=== PATIENT | female | born 1985 | race Caucasian/White ===

== ENCOUNTER 2016-11-27 10:30 | Inpatient (IN) | payer OTHER ==
[2016-11-27 10:59] VITALS: BMI 25.7
--- NOTE | 2016-11-27 12:47 | HP ---
COWS - Scale Resting Pulse: 1= IA 81-100 Sweatin= Chills/Flushing Restless Observation: 3= Extraneous Movement Pupil Size: 2= Moderately Dilated Bone or Joint Aches: 4=Acute Joint/Muscle Pain Runny Nose/ Eye Tearin= Runny Nose/Eyes GI Upset > 30mins: 1= Stomach Cramp Tremor Observation: 2= Slight Tremor Visible Yawning Observation: 2= >3x During Session Anxiety or Irritability: 2=Irritable/Anxious Goose Flesh Skin: 3=Piloerection COWS Score: 23 CIWA Score - CIWA Score Nausea/Vomitin-Int. Nausea w/Dry Heave Muscle Tremors: 4-Moderate,w/Arms Extend Anxiety: 4-Mod. Anxious/Guarded Agitation: 4-Moderately Restless Paroxysmal Sweats: 1-Minimal Palms Moist Orientation: 0-Oriented Tacttile Disturbances: 3-Moderate Itch/Numb/Burn Auditory Disturbances: 0-None Visual Disturbances: 0-None Headache: 0-None Present CIWA-Ar Total Score: 20 Admission [facility] Chief Complaint: DETOX [place] FOR HEROIN AND ALCOHOL DEPENDENCE Allergies/Adverse Reactions: Allergies Allergy/AdvReac Type Severity Reaction Status Date / Time Penicillins Allergy Severe Verified 11/27/16 11:49 History of Present Illness: 31 Y/O FEMALE WITH A HX OF HEROIN AND ALCOHOL DEPENDENCE SEEKING DETOX [place]. Exam Limitations: No Limitations - Ebola screening Have you traveled outside of the country in the last 21 days: No Have you had contact with anyone from an Ebola affected area: No Have you been sick,other than usual withdrawal symptoms: No - Review of Systems Constitutional: Chills, Loss of Appetite, Night Sweats, Changes in sleep EENT: reports: Blurred Vision, Tearing, Nose Congestion, Dental Problems (IN POOR REPAIR) Respiratory: reports: No Symptoms reported Cardiac: reports: Lightheadedness GI: reports: Constipated, Diarrhea, Nausea, Poor Appetite, Poor Fluid Intake, Vomiting, Abdominal cramping : reports: No Symptoms Reported Musculoskeletal: reports: Back Pain, Joint Pain, Muscle Pain Integumentary: reports: Bruising (IVDU TRACKS ON HANDS) Neuro: reports: Headache (HX MIGRAINES), Tremors, Dizziness Endocrine: reports: No Symptoms Reported Hematology: reports: No Symptoms Reported Psychiatric: reports: Orientated x3, Anxious Other Systems: Reviewed and Negative Patient History - Patient Medical History Hx Anemia: No Hx Asthma: No Hx Chronic Obstructive Pulmonary Disease (COPD): No Hx Cardiac Disorders: No Hx Hypertension: No Hx Hypercholesterolemia: No HX Cerebrovascular Accident: No Hx Seizures: No Hx Diabetes: No Hx Gastrointestinal Disorders: No Hx Genitourinary Disorders: No Hx Sexually Transmitted Disorders: No Hx Renal Disease (ESRD): No Hx Thyroid Disease: No Hx Human Immunodeficiency Virus (HIV): No (DENIES) Hx Hepatitis C: Yes (NOT TREATED) Hx Depression: Yes (NO MED) Hx Suicide Attempt: No (DENIES) Hx Bipolar Disorder: No Hx Schizophrenia: No - Patient Surgical History Past Surgical History: Yes Other Surgical History: R palm ganglion cyst removed 10 yrs ago. Anesthesia Reaction: No - PPD History Previous Implant?: Yes Documented Results: Negative w/o proof Implanted On Prior [facility] Admission?: No PPD to be Administered?: Yes - Reproductive History Patient is a Female of Child Bearing Age (11 -55 yrs old): Yes LMP comment: ON YEAR AGO--DUE TO DRUG USE Patient : No - Smoking Cessation Smoking history: Current every day smoker Have you smoked in the past 12 months: Yes Aproximately how many cigarettes per day: 20 Hx Chewing Tobacco Use: No Initiated information on smoking cessation: Yes 'Breaking Loose' booklet given: 11/27/16 - Substance & Tx. History Hx Alcohol Use: Yes (BEER/LIQOUR) Hx Substance Use: Yes (HEROIN) Substance Use Type: Alcohol, Heroin Hx Substance Use Treatment: Yes ([facility]) - Substances Abused Heroin Route: Injection Frequency: Daily Amount used: 2 GRAMS Age of first use: 25 Date of Last Use: 11/26/16 Alcohol Route: Oral Frequency: Daily Amount used: 12-16 BEERS Age of first use: 12 Date of Last Use: 11/27/16 Family Disease History - Family Disease History Family Disease History: Diabetes: Grandparent (HTN), Heart Disease: Grandparent , Father (HTN), Other: Grandparent, Father Admission Physical Exam BHS - Vital Signs Vital Signs: Vital Signs - 24 hr 11/27/16 10:57 Temperature 97.9 F Pulse Rate 88 Respiratory 20 Rate Blood Pressure 127/66 - Physical General Appearance: Yes: Moderate Distress, Irritable, Anxious HEENTM: Yes: EOMI, Normocephalic, ANGELA, Pharynx Normal, Lessions (UPPER LIP) Respiratory: Yes: Chest Non-Tender, Lungs Clear, Normal Breath Sounds, No Respiratory Distress Neck: Yes: Supple, Trachea in good position Breast: Yes: Breast Exam Deferred Cardiology: Yes: Regular Rhythm, Regular Rate, S1, S2 Abdominal: Yes: Normal Bowel Sounds, Non Tender, Soft Genitourinary: Yes: Other (N/C) Back: Yes: Within Normal Limits Musculoskeletal: Yes: full range of Motion, Gait Steady Extremities: Yes: Normal Range of Motion, Non-Tender 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: 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: 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, Fully Oriented, Alert, Motor Strength 5/5 Integumentary: Yes: Dry, Warm, Track Hammer (REDNESS AND SWELLING TO RIGHT ANKLE AND LEFT HAND DUE TO IVD INJ.) Lymphatic: Yes: Within Normal Limits - Diagnostic (1) Opioid dependence with withdrawal Current Visit: Yes Status: Acute (2) Alcohol dependence with uncomplicated withdrawal Current Visit: Yes Status: Acute (3) Cellulitis Current Visit: Yes Status: Acute Qualifiers: Site of cellulitis: extremity Site of cellulitis of extremity: lower extremity Laterality: right Qualified Code(s): L03.115 - Cellulitis of right lower limb Comment: AND LEFT HAND (4) History of hepatitis C Current Visit: Yes Status: Chronic (5) History of depression Current Visit: Yes Status: Chronic Cleared for Admission [facility] - Detox or Rehab [facility] Level of Care: Medically Managed Detox Regimen/Protocol: Methadone/Librium [facility] Breath Alcohol Content Breath Alcohol Content: 0 Urine Pregancy Test - Result Urine Test Results: Negative- NO Line Present Urine Drug Screen - Results Drug Screen Negative: No Urine Drug Screen Results: OPI-Opiates
[2016-11-27] MEDS ORDERED: chlordiazePOXIDE HCL 25 MG CAPSULE PO PRN (13:08)
[2016-11-27] MEDS ORDERED: guaiFENesin/D-METHORPHAN HB 10 ML UNIT-DOSE CUPS PO PRN (13:12)
[2016-11-27] MEDS ORDERED: MAGNESIUM CITRATE 300 ML BOTTLE PO PRN (13:12)
[2016-11-27] MEDS ORDERED: MAGNESIUM HYDROX 2400MG/30ML ORAL SUSPENSION 30 ML CUP PO PRN (13:12)
[2016-11-27] MEDS ORDERED: NICOTINE POLACRILEX 4 MG GUM BC PRN (13:12)
[2016-11-27] MEDS ORDERED: MAG HYDROX/AL HYDROX/SIMETH 30 ML UNIT-DOSE CUP PO PRN (13:12)
[2016-11-27] MEDS ORDERED: diphenhydrAMINE HCL 50 MG CAPSULE PO PRN (13:12)
[2016-11-27] MEDS ORDERED: P-EPHED 60MG/TRIPROLIDI 2.5MG TABLET PO PRN (13:12)
[2016-11-27] MEDS ORDERED: ACETAMINOPHEN 325 MG TABLET (FP) PO PRN (13:12)
[2016-11-27] MEDS ORDERED: LOPERAMIDE HCL 2 MG CAPSULE PO PRN (13:12)
[2016-11-27] MEDS ORDERED: MENTHOL/PHENOL 1 EACH UD MM PRN (13:12)
[2016-11-27] MEDS ORDERED: CEPHALEXIN MONOHYDRATE 500 MG CAPSULE (UD) PO SCH (13:30)
[2016-11-27] MEDS: BACITRACIN 0.9 GM PACKET TP SCH ×2 (14:15→22:17)
[2016-11-27] MEDS ORDERED: METHADONE HCL 10 MG TABLET (FOR DETOX USE ONLY) PO ONE ×2 (14:15→23:00)
[2016-11-27] MEDS ORDERED: chlordiazePOXIDE HCL 25 MG CAPSULE PO ONE (14:15)
[2016-11-27] MEDS: NICOTINE 21 MG/24 HOURS TOPICAL PATCH TD SCH (14:18)
[2016-11-27] MEDS: IBUPROFEN 400 MG TABLET (FP) PO PRN ×2 (14:28→22:17)
--- NOTE | 2016-11-27 16:21 | EKG ---
Test Reason : Blood Pressure : / mmHG Vent. Rate : 067 BPM Atrial Rate : 067 BPM P-R Int : 110 ms QRS Dur : 084 ms QT Int : 416 ms P-R-T Axes : 055 064 016 degrees QTc Int : 439 ms SINUS RHYTHM WITH MARKED SINUS ARRHYTHMIA WITH SHORT TX OTHERWISE NORMAL ECG NO PREVIOUS ECGS AVAILABLE Confirmed by ALEC MALIN MD ([id number]) on 11/27/2016 4:21:22 PM Referred By: Confirmed By:ALEC MALIN MD
[2016-11-27] MEDS: chlordiazePOXIDE HCL 25 MG CAPSULE PO SCH ×2 (16:28→22:18)
[2016-11-27 20:02] LABS: URINE APPEARANCE CLOUDY; URINE BILIRUBIN NEGATIVE (NEGATIVE); URINE BLOOD NEGATIVE (NEGATIVE); URINE COLOR YELLOW; URINE GLUCOSE (UA) NEGATIVE (NEGATIVE); URINE KETONE NEGATIVE (NEGATIVE); URINE NITRITE NEGATIVE (NEGATIVE); URINE PROTEIN NEGATIVE (NEGATIVE); URINE UROBILINOGEN NEGATIVE E.U./dl (0.2-1.0)
[2016-11-27 20:08] LABS: URINE LEUK ESTERASE TRACE (NEGATIVE)
[2016-11-27 20:12] LABS: URINE BACTERIA RARE /hpf (NONE SEEN); URINE MUCUS RARE; URINE RBC 1 /hpf (0-3); URINE WBC 7 /hpf (3-5)
[2016-11-27] MEDS ORDERED: THIAMINE HCL 100 MG TABLET (FP) PO SCH (22:00)
[2016-11-28] MEDS: chlordiazePOXIDE HCL 25 MG CAPSULE PO SCH ×2 (05:59→10:29)
[2016-11-28] MEDS: IBUPROFEN 400 MG TABLET (FP) PO PRN (06:01)
[2016-11-28] MEDS ORDERED: SULFAMETHOXAZOLE/TRIMETHOPRIM 800MG/160MG D.S. TABLET PO SCH (10:00)
[2016-11-28] MEDS ORDERED: METHADONE HCL 10 MG TABLET (FOR DETOX USE ONLY) PO SCH (10:00)
[2016-11-28] MEDS ORDERED: PRENATAL VITAMINS W/ FOLIC ACID TABLET (FP) PO SCH (10:00)
[2016-11-28 10:12] LABS: MCH 29.2 pg (25.7-33.7); MCHC 33.2 g/dl (32.0-36.0); MEAN CELL VOLUME 87.9 fl (80-96); MEAN PLT VOLUME 9.5 fl (7.5-11.1); PLATELET COUNT 270 K/MM3 (134-434); RDW 14.4 % (11.6-15.6); WHITE BLOOD COUNT 11.2 K/mm3 (4.0-10.0)
[2016-11-28 10:22] LABS: ALBUMIN 3.9 g/dl (3.4-5.0); ALK PHOS 115 U/L (45-117); ANION GAP 13 (8-16); BILIRUBIN,TOTAL 0.4 mg/dL (0.2-1.0); CALCIUM 9.6 mg/dL (8.5-10.1); CO2 25 mmol/L (21-32); CREATININE 0.9 mg/dL (0.55-1.02); GLUCOSE,RANDOM 117 mg/dL (74-106); SGOT/AST 40 U/L (15-37); SGPT/ALT 143 U/L (12-78); TOT PROT 7.7 g/dl (6.4-8.2)
--- NOTE | 2016-11-28 10:47 | PN ---
S CIWA - CIWA Score Nausea/Vomitin Muscle Tremors: 2 Anxiety: 3 Agitation: 3 Paroxysmal Sweats: 3 Orientation: 0-Oriented Tacttile Disturbances: 2-Mild Itch/Numbness/Burn Auditory Disturbances: 0-None Visual Disturbances: 0-None Headache: 0-None Present CIWA-Ar Total Score: 15 S COWS - Scale Resting Pulse: 0= NE 80 or Below Sweatin=Flushed/Facial Moisture Restless Observation: 1= Difficult to Sit Still Pupil Size: 1= Pupils >than Normal Bone or Joint Aches: 2= Severe Diffuse Aches Runny Nose/ Eye Tearin= Nasal Congestion GI Upset > 30mins: 1= Stomach Cramp Tremor Observation of Outstretched Hands: 2= Slight Tremor Visible Yawning Observation: 0= None Anxiety or Irritability: 2=Irritable/Anxious Goose Flesh Skin: 0=Smooth Skin COWS Score: 12 S Progress Note (SOAP) Subjective: interrupted sleep,sweats, shakes, so ankle pains Objective: 11/28/16 10:43 Vital Signs Temperature 97.7 F 11/28/16 10:08 Pulse Rate 85 11/28/16 10:08 Respiratory Rate 16 11/28/16 10:08 Blood Pressure 122/63 11/28/16 10:08 O2 Sat by Pulse Oximetry (%) Laboratory Tests 11/27/16 11/28/16 11/28/16 16:00 05:50 05:50 WBC 11.2 H RBC 4.10 Hgb 12.0 Hct 36.1 MCV 87.9 MCHC 33.2 RDW 14.4 Plt Count 270 MPV 9.5 Sodium 139 Potassium 3.7 Chloride 101 Carbon Dioxide 25 Anion Gap 13 BUN 10 Creatinine 0.9 Creat Clearance w eGFR > 60 Random Glucose 117 H Calcium 9.6 Total Bilirubin 0.4 AST 40 H ALT 143 H Alkaline Phosphatase 115 Total Protein 7.7 Albumin 3.9 Urine Color Yellow Urine Appearance Cloudy Urine pH 6.0 Ur Specific [place] 1.013 Urine Protein Negative Urine Glucose (UA) Negative Urine Ketones Negative Urine Blood Negative Urine Nitrite Negative Urine Bilirubin Negative Urine Urobilinogen Negative Ur Leukocyte Esterase Trace H Urine RBC 1 Urine WBC 7 Ur Epithelial Cells Many Urine Bacteria Rare Urine Mucus Rare pt [id number] lying in bed , irritable left wrist swelling so medial ankles + erythema , tenderness, rt> left Assessment: 11/28/16 10:45 withdrawl sx's cellulitis 2nd ivda r/o osteo Plan: cont. detox increase fluids xrays ankles bactrim ds bid motrin prn w/c prn monitor temps.
[2016-11-28] MEDS ORDERED: IBUPROFEN 400 MG TABLET (FP) PO PRN (11:00)
[2016-11-28] MEDS: NICOTINE 21 MG/24 HOURS TOPICAL PATCH TD SCH (11:09)
[2016-11-28] MEDS: BACITRACIN 0.9 GM PACKET TP SCH (11:09)
[2016-11-28] MEDS ORDERED: cloNIDine HCL 0.1 MG TABLET PO ONE (13:49)
[2016-11-28 14:09] VITALS: BP 105/52; PULSE 70; TEMP 97.9
[2016-11-28] MEDS ORDERED: chlordiazePOXIDE HCL 25 MG CAPSULE PO SCH (17:00)
--- NOTE | 2016-11-28 17:07 | CONSULT ---
[facility] Psychiatric Consult - Data Date of interview: 11/28/16 Admission source: [facility] Identifying data: Patient is a 31 y/o female admitted to [address] [place] [address] for detox treatment for heroin and alcohol dependence.Ms Rowley is approached for psychiatric interview.She refuses to talk to this fiction and nonfiction prose writer. Substance Abuse History: Patterns of substance revisited.Taken from [facility] report.Patient is uncooperative. - Smoking Cessation. Smoking history: Current every day smoker. Have you smoked in the past 12 months: Yes. Aproximately how many cigarettes per day: 20. Hx Chewing Tobacco Use: No. Initiated information on smoking cessation: Yes. 'Breaking Loose' booklet given : 11/27/16. - Substance & Tx. History. Hx Alcohol Use: Yes (BEER/LIQOUR). Hx Substance Use: Yes (HEROIN). Substance Use Type: Alcohol, Heroin. Hx Substance Use Treatment: Yes ([facility]). - Substances Abused. Heroin. Route: Injection. Frequency: Daily. Amount used: 2 GRAMS. Age of first use: 25. Date of Last Use: 11/26/16. Alcohol. Route: Oral. Frequency: Daily. Amount used: 12-16 BEERS. Age of first use: 12. Date of Last Use: 11/27/16. Urine Drug Screen Results: OPI-Opiates.Noted. Additional Comment: Psychiatric interview cannot be conducted due to absence of cooperation from this patient.Ms Rowley is angry,loud,argumentative and disruptive on the unit.She is verbally abusive to nurses and one female counselor.Patient keeps on using profane language and she maintains an atmosphere of tension in the envronment.Ms Rowley is not receptive to verbal redirections.Apparently,the patient,prior to contact with fiction and nonfiction prose writer,was involved in an argument with staff.Psychiatric interview cannot be conducted at this time.Nursing staff is made aware.
[2016-11-28] MEDS ORDERED: cloNIDine HCL 0.1 MG TABLET PO SCH (22:00)
[2016-11-29] MEDS ORDERED: METHADONE HCL 5 MG TABLET (FOR DETOX USE ONLY) PO SCH (10:00)
[2016-11-29] MEDS ORDERED: chlordiazePOXIDE 5 MG CAPSULE PO SCH (17:00)
[2016-11-30] MEDS ORDERED: chlordiazePOXIDE HCL 10 MG CAPSULE PO SCH (17:00)
[2016-12-01] MEDS ORDERED: METHADONE HCL 10 MG TABLET (FOR DETOX USE ONLY) PO SCH (10:00)
[2016-12-02] MEDS ORDERED: METHADONE HCL 5 MG TABLET (FOR DETOX USE ONLY) PO SCH (06:00)
== END 2016-11-28 16:45 | disposition home or self-care (01) | DRG 773 ==
LOC: YASAS 10:30 → Y6N 13:43
PROVIDERS: ADMIT Internal Medicine Addiction Medicine; ATTEND Internal Medicine Addiction Medicine
PROC: HZ2ZZZZ Detoxification Services for Substance Abuse Treatment (ICD-10-PCS; principal; 2016-11-28)
DX: F11.23 Opioid dependence with withdrawal (principal); F10.230 Alcohol dependence with withdrawal, uncomplicated; F32.9 Major depressive disorder, single episode, unspecified; B18.2 Chronic viral hepatitis C; L03.115 Cellulitis of right lower limb; L03.114 Cellulitis of left upper limb
CPT/HCPCS: 36415; 73610-TC-LT; 73610-TC-RT; 80053; 81003; 81015; 85027; 86593; 93005; 93010

== ENCOUNTER 2025-05-02 17:52 | Inpatient (IN) | payer OTHER ==
[2025-05-02] MEDS ORDERED: CEFEPIME HCL/D5W 2 GM/50 ML BAG IVPB ONE (18:40)
[2025-05-02] MEDS: LACTATED RINGERS SOLUTION 1000 ML INFUS.BAG IV ONE (18:55)
[2025-05-02 19:10] LABS: BG HCT 18.0 % (32.4-45.2); VENOUS BASE EXCESS -12.2 mmol/L (-2-2); VENOUS O2 SATURATION 46.5 % (70-80); VENOUS PCO2 26.1 mmHg (38-52); VENOUS PH 7.311 (7.310-7.410)
[2025-05-02 19:18] LABS: MCHC 25.1 g/dl (32.2-35.5); MEAN CELL VOLUME 75.3 fl (79.4-94.8); MEAN PLT VOLUME 10.6 fl (9.4-12.3); RDW 25.4 % (12.1-16.8)
[2025-05-02 19:28] LABS: CO2 13 mmol/L (21-32); INR 2.77 (0.83-1.09); PROTHROMBIN TIME (PATIENT) 30.5 SEC (9.7-13.0)
[2025-05-02 19:30] LABS: CREATININE 1.4 mg/dL (0.55-1.3); SGOT/AST 176 U/L (15-37); SGPT/ALT 60 U/L (13-61)
[2025-05-02 19:31] LABS: ACTIVATED PTT 31.4 SECONDS (25.2-36.5)
[2025-05-02 19:32] LABS: TOT PROT 7.3 g/dl (6.4-8.2)
[2025-05-02 19:33] LABS: ALK PHOS 126 U/L (45-117)
[2025-05-02] MEDS: CEFEPIME HCL 2 GM VIAL (RESTRICTED TO ID) IVPB ONE (19:35)
[2025-05-02 19:37] LABS: GLUCOSE,RANDOM 49 mg/dL (74-106)
[2025-05-02 19:45] LABS: LACTIC ACID 15.2 mmol/L (0.4-2.0)
[2025-05-02] MEDS ORDERED: DEXTROSE 50%-WATER 25 GM/50 ML DISP.SYRIN ONE (19:57)
[2025-05-02 20:01] LABS: LDH 385.0 U/L (84-246)
[2025-05-02 20:15] LABS: EPI CELLS >36 /uL (0-25.1); HYALINE CASTS 1 /uL (0-3.1); URINE APPEARANCE CLOUDY; URINE BACTERIA 1878 /uL (0-1359); URINE BILIRUBIN NEGATIVE (NEGATIVE); URINE COLOR YELLOW; URINE GLUCOSE (UA) NEGATIVE (NEGATIVE); URINE KETONE 1+ (NEGATIVE); URINE LEUK ESTERASE 1+ (NEGATIVE); URINE NITRITE NEGATIVE (NEGATIVE); URINE PROTEIN 1+ (NEGATIVE); URINE RBC 22 /uL (0-23.9); URINE UROBILINOGEN 1.0 mg/dL (0.2-1.0); URINE WBC 58 /uL (0-25.8)
[2025-05-02] MEDS: DEXTROSE 50%-WATER - 25 GM/50 ML VIAL IVPUSH ONE (20:15)
[2025-05-02] MEDS: VANCOMYCIN 1,000 MG in DEXTROSE 5%-WATER - 250 ML IVPB ONE (20:38)
[2025-05-02] MEDS ORDERED: VANCOMYCIN 1 GM PREMIX (F) 1 GM/200 ML BAG ONE (20:38)
[2025-05-02 20:59] LABS: PHENCYCLIDINE,URINE NEGATIVE (NEGATIVE); URINE AMPHETAMINES NEGATIVE (NEGATIVE); URINE BARBITURATES NEGATIVE (NEGATIVE)
[2025-05-02 21:00] LABS: COCAINE, UR POSITIVE (NEGATIVE); METHADONE, UR POSITIVE (NEGATIVE); OPIATES, URI POSITIVE (NEGATIVE); URINE BENZODIAZEPINES NEGATIVE (NEGATIVE)
[2025-05-02 21:20] LABS: LACTIC ACID 16.5 mmol/L (0.4-2.0)
[2025-05-02 21:49] LABS: HIV INTERPRETATION NEGATIVE (NEGATIVE)
[2025-05-02 21:57] LABS: HCV DIAGNOSTIC IN-HOUSE W/RFLX REACTIVE (NONREACTIVE)
[2025-05-03] MEDS: LACTATED RINGERS SOLUTION 1,000 ML/1,000 ML INFUS.BAG IV ONE ×2 (00:30→04:15)
[2025-05-03] MEDS ORDERED: DEXTROSE 5%-NORMAL SALINE 1,000 ML IV SCH (02:30)
[2025-05-03] MEDS: DEXTROSE 5%-NORMAL SALINE 1,000 ML IV SCH (03:09)
[2025-05-03] MEDS: CLINDAMYCIN 900 MG PREMIX IVPB 900 MG/50 ML BAG IVPB SCH (04:06)
[2025-05-03] MEDS: ACETAMINOPHEN 325 MG TABLET (FP) PO PRN (04:16)
[2025-05-03] MEDS ORDERED: ONDANSETRON 4 MG/2 ML VIAL ONE (06:11)
[2025-05-03] MEDS: CEFEPIME HCL 1 GM VIAL (RESTRICTED TO ID) IVPB SCH ×2 (06:20→13:52)
[2025-05-03] MEDS: POLYETHYLENE GLYCOL (HEALTHYLAX) 3350 17 GM PACKET PO SCH (06:22)
[2025-05-03] MEDS: ONDANSETRON 4 MG/2 ML VIAL IVPUSH PRN (06:48)
[2025-05-03] MEDS: PHYTONADIONE 5 MG TABLET PO SCH (07:08)
[2025-05-03 08:12] LABS: MCHC 29.2 g/dl (32.2-35.5); MEAN CELL VOLUME 75.7 fl (79.4-94.8)
[2025-05-03 08:14] LABS: IMMATURE PLATELET FRACTION # 17.80 x10^3/uL; MEAN PLT VOLUME 10.0 fl (9.4-12.3); RDW 25.0 % (12.1-16.8)
[2025-05-03 08:20] LABS: INR 2.44 (0.83-1.09); PROTHROMBIN TIME (PATIENT) 26.6 SEC (9.7-13.0)
[2025-05-03 08:21] LABS: URINE UREA NITROGEN 292 mg/dL (350-1000)
[2025-05-03 08:22] LABS: ACTIVATED PTT 32.7 SECONDS (25.2-36.5)
[2025-05-03 08:47] LABS: CO2 26.0 mmol/L (21-32); GLUCOSE,RANDOM 128.0 mg/dL (74-106)
[2025-05-03 08:49] LABS: CREATININE 1.2 mg/dL (0.55-1.3); SGOT/AST 344.0 U/L (15-37)
[2025-05-03 08:51] LABS: TOT PROT 7.6 g/dl (6.4-8.2)
[2025-05-03 08:52] LABS: N-TERMINAL BNP 2902.6 pg/ml (5-125)
[2025-05-03 08:56] LABS: ALK PHOS 136.0 U/L (45-117)
[2025-05-03 08:56] LABS: LDH 499.0 U/L (84-246)
[2025-05-03 08:57] LABS: IRON SERUM 28.0 ug/dL (50-175)
[2025-05-03 09:03] LABS: SGPT/ALT 103.0 U/L (13-61)
[2025-05-03 09:08] LABS: LACTIC ACID 5.1 mmol/L (0.4-2.0)
[2025-05-03] MEDS: DEXTROSE 5%-0.45% SALINE 1,000 ML IV SCH ×2 (09:34→14:35)
[2025-05-03] MEDS: MUPIROCIN 2% TOPICAL OINTMENT FOR DECOLONIZATION NS SCH (09:35)
[2025-05-03] MEDS: NICOTINE 14 MG/24 HOURS TOPICAL PATCH TD SCH (09:35)
[2025-05-03] MEDS: KCL 10 MEQ IVPB 10 MEQ/100 ML INFUS.BAG IVPB SCH (09:35)
[2025-05-03] MEDS: PANTOPRAZOLE 40 MG TABLET PO SCH (09:35)
[2025-05-03] MEDS: PHYTONADIONE 10 MG/1 ML AMP IVPB ONE ×2 (12:21→12:34)
[2025-05-03] MEDS: IRON SUCROSE INJECTION 200 MG in SODIUM CHLORIDE 100 ML IVPB ONE ×2 (12:34→14:35)
[2025-05-03] MEDS: MEROPENEM 1 GM in DEXTROSE 5%-WATER 100 ML IVPB SCH (13:14)
[2025-05-03] MEDS: PROMETHAZINE HCL 25 MG/1 ML VIAL IM PRN (13:14)
[2025-05-03] MEDS ORDERED: VANCOMYCIN/WATER FOR INJ (PEG) 750 MG/150 ML BAG IVPB SCH (21:00)
[2025-05-03] MEDS ORDERED: VANCOMYCIN 750 MG in DEXTROSE 5%-WATER - 150 ML IVPB SCH (21:00)
[2025-05-03] MEDS: CHLORHEXIDINE GLUCONATE 4% CLEANSER FOR DECOLONIZATION TP SCH (22:15)
[2025-05-03] MEDS: VANCOMYCIN/WATER FOR INJ (PEG) 1,000 MG/200 ML BAG IVPB SCH (22:17)
[2025-05-03] MEDS: MELATONIN 5 MG TABLETS PO PRN (22:20)
[2025-05-04 07:48] LABS: INR 1.9 (0.83-1.09); PROTHROMBIN TIME (PATIENT) 20.7 SEC (9.7-13.0)
[2025-05-04 07:51] LABS: ACTIVATED PTT 30.3 SECONDS (25.2-36.5)
[2025-05-04 07:59] LABS: CO2 27.0 mmol/L (21-32); GLUCOSE,RANDOM 138.0 mg/dL (74-106)
[2025-05-04 08:02] LABS: CREATININE 0.7 mg/dL (0.55-1.3); SGOT/AST 771.0 U/L (15-37); SGPT/ALT 267.0 U/L (13-61)
[2025-05-04 08:03] LABS: TOT PROT 6.6 g/dl (6.4-8.2)
[2025-05-04 08:05] LABS: ALK PHOS 120.0 U/L (45-117)
[2025-05-04] MEDS: SODIUM CHLORIDE 1,000 ML IV SCH ×2 (09:18→18:10)
[2025-05-04] MEDS: AMINO ACIDS/PROTEIN HYDROLYS 30 ML LIQUID.PKT PO SCH ×2 (09:21→18:13)
[2025-05-04] MEDS: PHYTONADIONE 10 MG/1 ML AMP IVPB ONE (09:21)
[2025-05-04] MEDS: ZINC SULFATE 220 MG CAPSULE (FP) PO SCH (09:23)
[2025-05-04] MEDS: MULTIVITAMINS (DAILY MVI) TABLET (FP) PO SCH (09:24)
[2025-05-04] MEDS ORDERED: KCL 10 MEQ IVPB 10 MEQ/100 ML INFUS.BAG IVPB SCH (09:30)
[2025-05-04] MEDS: POTASSIUM CHLORIDE ORAL LIQUID 20 MEQ/15 ML PO ONE (09:46)
[2025-05-04] MEDS: SODIUM CHLORIDE 1,000 ML IV STA (09:46)
[2025-05-04] MEDS: POTASSIUM PHOSPHATE 30 MM in DEXTROSE 5%-WATER - 250 ML IVPB ONE (11:08)
[2025-05-04 12:57] LABS: ABSOLUTE IMMATURE GRANULOCYTES 0.18 x10^3/uL (0.0-0.031); BASOPHILS # 0.02 x10^3/uL (0.01-0.08); EOSINOPHIL % 0.1 % (0.7-5.8); EOSINOPHILS # 0.01 x10^3/uL (0.04-0.36); MCHC 30.5 g/dl (32.2-35.5); MEAN CELL VOLUME 72.4 fl (79.4-94.8); MEAN PLT VOLUME 10.2 fl (9.4-12.3); MONOCYTE # 0.66 x10^3/uL (0.24-0.86); MONOCYTE % 3.4 % (4.7-12.5); RDW 25.2 % (12.1-16.8)
[2025-05-04] MEDS ORDERED: LORazepam 4 MG/1 ML VIAL IVPUSH PRN (15:30)
[2025-05-04] MEDS ORDERED: PROMETHAZINE HCL 25 MG/1 ML VIAL IM PRN (17:29)
[2025-05-04] MEDS: MEROPENEM 1 GM in DEXTROSE 5%-WATER 100 ML IVPB SCH (18:09)
[2025-05-04] MEDS: KETOROLAC TROMETHAMINE 15 MG/ML VIAL IVPUSH PRN (20:43)
[2025-05-04] MEDS: SODIUM HYPOCHLORITE 0.25%- 473 ML BULK BOTTLE TP SCH (20:51)
[2025-05-04] MEDS: VANCOMYCIN/WATER FOR INJ (PEG) 1,000 MG/200 ML BAG IVPB SCH (20:51)
[2025-05-04] MEDS: MELATONIN 5 MG TABLETS PO PRN (21:21)
[2025-05-04] MEDS: POLYETHYLENE GLYCOL (HEALTHYLAX) 3350 17 GM PACKET PO SCH (21:22)
[2025-05-04] MEDS ORDERED: MUPIROCIN 2% TOPICAL OINTMENT FOR DECOLONIZATION NS SCH (22:00)
[2025-05-04] MEDS ORDERED: CHLORHEXIDINE GLUCONATE 4% CLEANSER FOR DECOLONIZATION TP SCH (22:00)
[2025-05-05 09:03] LABS: MCHC 28.2 g/dl (32.2-35.5); MEAN CELL VOLUME 78.2 fl (79.4-94.8); MEAN PLT VOLUME 10.5 fl (9.4-12.3); RDW 27.0 % (12.1-16.8)
[2025-05-05] MEDS ORDERED: MEROPENEM 1 GM VIAL (RESTRICTED TO ID) IVPB ONE (09:33)
[2025-05-05] MEDS: MULTIVITAMINS (DAILY MVI) TABLET (FP) PO SCH (09:43)
[2025-05-05] MEDS: FERROUS SO4 325 MG TABLET (FP) PO SCH (09:43)
[2025-05-05] MEDS: NICOTINE 14 MG/24 HOURS TOPICAL PATCH TD SCH (09:44)
[2025-05-05] MEDS: ZINC SULFATE 220 MG CAPSULE (FP) PO SCH (09:45)
[2025-05-05] MEDS: PANTOPRAZOLE 40 MG TABLET PO SCH (09:58)
[2025-05-05] MEDS ORDERED: FERROUS SO4 325 MG TABLET (FP) PO SCH (10:00)
[2025-05-05 10:43] LABS: CO2 24.0 mmol/L (21-32); GLUCOSE,RANDOM 107.0 mg/dL (74-106)
[2025-05-05 10:46] LABS: CREATININE 0.5 mg/dL (0.55-1.3); SGOT/AST 304.0 U/L (15-37); SGPT/ALT 179.0 U/L (13-61)
[2025-05-05 10:47] LABS: TOT PROT 6.1 g/dl (6.4-8.2)
[2025-05-05 10:49] LABS: ALK PHOS 121.0 U/L (45-117)
[2025-05-05] MEDS: POTASSIUM PHOSPHATE 30 MM in SODIUM CHLORIDE 500 ML IVPB ONE (14:18)
[2025-05-05] MEDS: POTASSIUM CHLORIDE TABS 20 MEQ TABLET.ER (FP) PO ONE (14:18)
[2025-05-05] MEDS: SODIUM CHLORIDE 1,000 ML IV SCH (14:22)
[2025-05-05] MEDS: POTASSIUM PHOSPHATE 30 MM in SODIUM CHLORIDE 250 ML IVPB ONE (14:40)
[2025-05-05 18:13] LABS: BODY FLUID MONOCYTE 7 %; BODYL FLD EOSINOPHIL 2 %
[2025-05-05 21:10] LABS: GLIADIN ANTIBODY IGA 4 units (0-19); TRANSGLUTAMINASE IGG 5 U/mL (0-5)
[2025-05-05] MEDS: NAPH,MB-DB/K PH,MBDB POWDER PACKET PO SCH (21:20)
[2025-05-06 10:34] LABS: MCHC 28.9 g/dl (32.2-35.5); MEAN CELL VOLUME 77.8 fl (79.4-94.8); MEAN PLT VOLUME 10.0 fl (9.4-12.3); RDW 28.0 % (12.1-16.8)
[2025-05-06 11:09] LABS: CO2 25.0 mmol/L (21-32); GLUCOSE,RANDOM 166.0 mg/dL (74-106)
[2025-05-06 11:12] LABS: CREATININE 0.5 mg/dL (0.55-1.3); SGOT/AST 103.0 U/L (15-37); SGPT/ALT 105.0 U/L (13-61)
[2025-05-06 11:13] LABS: TOT PROT 6.0 g/dl (6.4-8.2)
[2025-05-06 11:15] LABS: ALK PHOS 116.0 U/L (45-117)
[2025-05-06] MEDS: ALBUMIN HUMAN 25% 12.5 GM/50 ML VIAL IV SCH (11:22)
[2025-05-06] MEDS: POTASSIUM CHLORIDE ORAL LIQUID 20 MEQ/15 ML PO ONE (12:42)
[2025-05-06] MEDS: NAPH,MB-DB/K PH,MBDB POWDER PACKET PO SCH (13:18)
[2025-05-06] MEDS: POTASSIUM PHOSPHATE 30 MM in SODIUM CHLORIDE 500 ML IVPB ONE (14:15)
[2025-05-06] MEDS: SODIUM CHLORIDE 1,000 ML IV SCH (14:18)
[2025-05-06 15:41] VITALS: BMI 25.4
[2025-05-06] MEDS: ONDANSETRON 4 MG/2 ML VIAL IVPUSH PRN (19:23)
[2025-05-06 20:06] LABS: IG A QN SERUM. 451 mg/dL (87-352)
[2025-05-07] MEDS: ENOXAPARIN NA (PORCINE) 60 MG/0.6 ML DISP.SYRIN SQ SCH (09:16)
[2025-05-07 11:55] LABS: ABSOLUTE IMMATURE GRANULOCYTES 0.19 x10^3/uL (0.0-0.031); BASOPHILS # 0.03 x10^3/uL (0.01-0.08); EOSINOPHIL % 0.2 % (0.7-5.8); EOSINOPHILS # 0.03 x10^3/uL (0.04-0.36); MCHC 28.5 g/dl (32.2-35.5); MEAN CELL VOLUME 79.9 fl (79.4-94.8); MEAN PLT VOLUME 10.2 fl (9.4-12.3); MONOCYTE # 1.10 x10^3/uL (0.24-0.86); MONOCYTE % 6.4 % (4.7-12.5); RDW 29.3 % (12.1-16.8)
[2025-05-07 12:01] LABS: INR 1.37 (0.83-1.09); PROTHROMBIN TIME (PATIENT) 14.9 SEC (9.7-13.0)
[2025-05-07] MEDS: FAMOTIDINE 20 MG/50 ML IVPB 20 MG/50 ML MG IVPB SCH (12:28)
[2025-05-07 12:35] LABS: CO2 26.0 mmol/L (21-32); GLUCOSE,RANDOM 98.0 mg/dL (74-106)
[2025-05-07 12:37] LABS: SGPT/ALT 72.0 U/L (13-61)
[2025-05-07 12:38] LABS: CREATININE 0.4 mg/dL (0.55-1.3); SGOT/AST 55.0 U/L (15-37)
[2025-05-07 12:39] LABS: TOT PROT 5.8 g/dl (6.4-8.2)
[2025-05-07 12:40] LABS: ALK PHOS 107.0 U/L (45-117)
[2025-05-07 14:11] LABS: BODY FLUID ALBUMIN 1.4 g/dL (Not Estab.)
[2025-05-07 17:07] LABS: ALPHA-1-ANTITRYPSIN SERUM 320 mg/dL (100-188)
[2025-05-08 09:30] LABS: ALK PHOS 113.0 U/L (45-117)
[2025-05-08 09:31] LABS: CO2 24.0 mmol/L (21-32); GLUCOSE,RANDOM 80.0 mg/dL (74-106); SGOT/AST 47.0 U/L (15-37); SGPT/ALT 63.0 U/L (13-61)
[2025-05-08 09:32] LABS: TOT PROT 6.0 g/dl (6.4-8.2)
[2025-05-08 09:33] LABS: CREATININE 0.4 mg/dL (0.55-1.3)
[2025-05-08] MEDS: ALBUMIN HUMAN 25% 12.5 GM/50 ML VIAL IV SCH (11:26)
[2025-05-08 14:03] LABS: ABSOLUTE IMMATURE GRANULOCYTES 0.12 x10^3/uL (0.0-0.031); BASOPHILS # 0.03 x10^3/uL (0.01-0.08); EOSINOPHIL % 0.3 % (0.7-5.8); EOSINOPHILS # 0.04 x10^3/uL (0.04-0.36); MCHC 27.8 g/dl (32.2-35.5); MEAN CELL VOLUME 81.5 fl (79.4-94.8); MEAN PLT VOLUME 10.4 fl (9.4-12.3); MONOCYTE # 0.90 x10^3/uL (0.24-0.86); MONOCYTE % 7.2 % (4.7-12.5); RDW 29.7 % (12.1-16.8)
[2025-05-08 14:08] LABS: EPI CELLS 10 /uL (0-25.1); HYALINE CASTS 0 /uL (0-3.1); URINE APPEARANCE CLEAR; URINE BACTERIA 3 /uL (0-1359); URINE BILIRUBIN NEGATIVE (NEGATIVE); URINE COLOR DK YELLOW; URINE GLUCOSE (UA) NEGATIVE (NEGATIVE); URINE KETONE TRACE (NEGATIVE); URINE LEUK ESTERASE TRACE (NEGATIVE); URINE NITRITE NEGATIVE (NEGATIVE); URINE PROTEIN 1+ (NEGATIVE); URINE RBC 19 /uL (0-23.9); URINE UROBILINOGEN 2.0 mg/dL (0.2-1.0); URINE WBC 16 /uL (0-25.8)
[2025-05-08 14:16] LABS: INR 1.33 (0.83-1.09); PROTHROMBIN TIME (PATIENT) 14.6 SEC (9.7-13.0)
[2025-05-08] MEDS: LACTULOSE 20 GM/30 ML UDC (FOR ORAL USE ONLY) PO ONE (14:59)
[2025-05-08] MEDS: LACTULOSE 20 GM/30 ML UDC (FOR ORAL USE ONLY) PO SCH (21:12)
[2025-05-09 10:20] LABS: INR 1.29 (0.83-1.09); PROTHROMBIN TIME (PATIENT) 14.1 SEC (9.7-13.0)
[2025-05-09 10:21] LABS: MCHC 27.7 g/dl (32.2-35.5); MEAN CELL VOLUME 81.8 fl (79.4-94.8); MEAN PLT VOLUME 10.3 fl (9.4-12.3); RDW 29.8 % (12.1-16.8)
[2025-05-09 11:28] LABS: CO2 27.0 mmol/L (21-32); GLUCOSE,RANDOM 77.0 mg/dL (74-106)
[2025-05-09 11:31] LABS: CREATININE 0.4 mg/dL (0.55-1.3); SGOT/AST 34.0 U/L (15-37); SGPT/ALT 50.0 U/L (13-61)
[2025-05-09 11:33] LABS: TOT PROT 6.1 g/dl (6.4-8.2)
[2025-05-09 11:34] LABS: ALK PHOS 103.0 U/L (45-117)
[2025-05-09] MEDS: THIAMINE 100 MG TABLET PO SCH (18:01)
[2025-05-09] MEDS: FOLIC ACID 1 MG TABLET (FP) PO SCH (18:02)
[2025-05-10 08:42] LABS: ABSOLUTE IMMATURE GRANULOCYTES 0.08 x10^3/uL (0.0-0.031); BASOPHILS # 0.04 x10^3/uL (0.01-0.08); EOSINOPHIL % 0.8 % (0.7-5.8); EOSINOPHILS # 0.09 x10^3/uL (0.04-0.36); MCHC 28.8 g/dl (32.2-35.5); MEAN CELL VOLUME 81.2 fl (79.4-94.8); MEAN PLT VOLUME 10.2 fl (9.4-12.3); MONOCYTE # 0.76 x10^3/uL (0.24-0.86); MONOCYTE % 7.1 % (4.7-12.5); RDW 27.8 % (12.1-16.8)
[2025-05-10 08:50] LABS: INR 1.24 (0.83-1.09); PROTHROMBIN TIME (PATIENT) 13.6 SEC (9.7-13.0)
[2025-05-10 09:12] LABS: SGOT/AST 31.0 U/L (15-37); SGPT/ALT 43.0 U/L (13-61)
[2025-05-10 09:13] LABS: TOT PROT 5.9 g/dl (6.4-8.2)
[2025-05-10 09:14] LABS: ALK PHOS 102.0 U/L (45-117)
[2025-05-10 09:17] LABS: CO2 28.0 mmol/L (21-32); GLUCOSE,RANDOM 87.0 mg/dL (74-106)
[2025-05-10 09:20] LABS: CREATININE 0.3 mg/dL (0.55-1.3); SGOT/AST 32.0 U/L (15-37); SGPT/ALT 44.0 U/L (13-61)
[2025-05-10 09:21] LABS: TOT PROT 5.8 g/dl (6.4-8.2)
[2025-05-10 09:23] LABS: ALK PHOS 105.0 U/L (45-117)
[2025-05-11] MEDS: ACETAMINOPHEN 1000 MG/100 ML BAG IVPB ONE (00:35)
[2025-05-11 10:53] LABS: ALK PHOS 123.0 U/L (45-117)
[2025-05-11 10:55] LABS: CO2 29.0 mmol/L (21-32); GLUCOSE,RANDOM 102.0 mg/dL (74-106)
[2025-05-11 10:58] LABS: CREATININE 0.4 mg/dL (0.55-1.3); SGOT/AST 36.0 U/L (15-37)
[2025-05-11 11:00] LABS: TOT PROT 6.5 g/dl (6.4-8.2)
[2025-05-11 11:16] LABS: SGPT/ALT 48.0 U/L (13-61)
[2025-05-11 11:17] LABS: MCHC 28.7 g/dl (32.2-35.5); MEAN CELL VOLUME 84.4 fl (79.4-94.8); MEAN PLT VOLUME 10.8 fl (9.4-12.3); RDW 27.9 % (12.1-16.8)
[2025-05-11] MEDS: VANCOMYCIN/WATER FOR INJ (PEG) 1,000 MG/200 ML BAG IVPB SCH (17:56)
[2025-05-11] MEDS: LACTULOSE 20 GM/30 ML UDC (FOR ORAL USE ONLY) PO SCH (21:55)
[2025-05-11] MEDS: KETOROLAC TROMETHAMINE 15 MG/ML VIAL IVPUSH ONE (23:27)
[2025-05-12] MEDS: ACETAMINOPHEN 500 MG TABLET (FP) PO PRN (09:35)
[2025-05-12] MEDS: DALBAVANCIN HCL 1,500 MG in DEXTROSE 5%-WATER - 500 ML IVPB ONE (17:13)
[2025-05-12] MEDS: KETOROLAC TROMETHAMINE 15 MG/ML VIAL IVPUSH ONE (21:41)
[2025-05-13 08:35] LABS: MCHC 28.2 g/dl (32.2-35.5); MEAN CELL VOLUME 84.4 fl (79.4-94.8); MEAN PLT VOLUME 10.7 fl (9.4-12.3); RDW 27.2 % (12.1-16.8)
[2025-05-13 08:57] LABS: GLUCOSE,RANDOM 81.0 mg/dL (74-106)
[2025-05-13 09:00] LABS: CREATININE 0.5 mg/dL (0.55-1.3); SGOT/AST 22.0 U/L (15-37); SGPT/ALT 36.0 U/L (13-61)
[2025-05-13 09:01] LABS: ALK PHOS 120.0 U/L (45-117); TOT PROT 6.7 g/dl (6.4-8.2)
[2025-05-13 09:44] LABS: CO2 25.0 mmol/L (21-32)
[2025-05-13] MEDS: PANTOPRAZOLE 40 MG TABLET PO SCH (10:03)
[2025-05-13] MEDS: KETOROLAC TROMETHAMINE 10 MG TABLET PO SCH (14:10)
[2025-05-13] MEDS: FUROSEMIDE 20 MG TABLET (FP) PO ONE (14:41)
[2025-05-13] MEDS: ACETAMINOPHEN 1000 MG/100 ML BAG IVPB PRN (21:23)
[2025-05-13] MEDS: ACETAMINOPHEN 500 MG TABLET (FP) PO PRN (23:05)
[2025-05-14] MEDS: FUROSEMIDE 40 MG TABLET (FP) PO ONE (09:13)
[2025-05-14] MEDS: SUCRALFATE 1 GM/10 ML UNIT DOSE CUPS PO SCH (09:13)
[2025-05-14] MEDS ORDERED: KETOROLAC TROMETHAMINE 10 MG TABLET PO PRN (13:32)
[2025-05-14] MEDS: ONDANSETRON *ODT* 4 MG TABLET SL PRN (14:01)
[2025-05-15 08:48] LABS: ABSOLUTE IMMATURE GRANULOCYTES 0.02 x10^3/uL (0.0-0.031); BASOPHILS # 0.07 x10^3/uL (0.01-0.08); EOSINOPHIL % 0.6 % (0.7-5.8); EOSINOPHILS # 0.05 x10^3/uL (0.04-0.36); MCHC 28.0 g/dl (32.2-35.5); MEAN CELL VOLUME 84.5 fl (79.4-94.8); MEAN PLT VOLUME 10.9 fl (9.4-12.3); MONOCYTE # 0.45 x10^3/uL (0.24-0.86); MONOCYTE % 5.6 % (4.7-12.5); RDW 26.4 % (12.1-16.8)
[2025-05-15 08:56] LABS: INR 1.23 (0.83-1.09); PROTHROMBIN TIME (PATIENT) 13.4 SEC (9.7-13.0)
[2025-05-15 10:06] LABS: CO2 26.0 mmol/L (21-32); GLUCOSE,RANDOM 92.0 mg/dL (74-106)
[2025-05-15 10:08] LABS: CREATININE 0.5 mg/dL (0.55-1.3); SGOT/AST 16.0 U/L (15-37); SGPT/ALT 29.0 U/L (13-61)
[2025-05-15 10:10] LABS: TOT PROT 6.6 g/dl (6.4-8.2)
[2025-05-15 10:11] LABS: ALK PHOS 111.0 U/L (45-117)
[2025-05-15 14:58] VITALS: RESP 16
[2025-05-15 15:39] VITALS: PULSE 94
[2025-05-15 15:45] VITALS: BP 118/73; TEMP 97.8
[2025-05-15] MEDS: MAG HYDROX/AL HYDROX/SIMETH 30 ML UNIT-DOSE CUP PO SCH (17:13)
[2025-05-15] MEDS: MAG HYDROX/ALH/SMC/DPHA/LIDO 240 ML MOUTHWASH MM SCH (17:14)
[2025-05-15] MEDS ORDERED: PANTOPRAZOLE 40 MG TABLET PO SCH (22:00)
== END 2025-05-15 20:26 | disposition home or self-care (01) | DRG 720 ==
LOC: JER 17:52 → JERBED 18:17 → OBSVTOIN 18:17 → JICU 05-03 01:01 → J8W 05-04 17:14
PROVIDERS: ADMIT Internal Medicine; ATTEND Nurse Practitioner Family
PROC: 0W9G3ZZ Drainage of Peritoneal Cavity, Percutaneous Approach (ICD-10-PCS; principal; 2025-05-05)
PROC: 0DB98ZX Excision of Duodenum, Via Natural or Artificial Opening Endoscopic, Diagnostic (ICD-10-PCS; 2025-05-15)
PROC: 0DB58ZX Excision of Esophagus, Via Natural or Artificial Opening Endoscopic, Diagnostic (ICD-10-PCS; 2025-05-15)
PROC: 0DB68ZX Excision of Stomach, Via Natural or Artificial Opening Endoscopic, Diagnostic (ICD-10-PCS; 2025-05-15)
DX: A41.01 Sepsis due to Methicillin susceptible Staphylococcus aureus (principal); K22.10 Ulcer of esophagus without bleeding; K26.9 Duodenal ulcer, unspecified as acute or chronic, without hemorrhage or perforation; F11.20 Opioid dependence, uncomplicated; J18.9 Pneumonia, unspecified organism; E87.1 Hypo-osmolality and hyponatremia; N39.0 Urinary tract infection, site not specified; K70.11 Alcoholic hepatitis with ascites; E87.20 Acidosis, unspecified; K85.20 Alcohol induced acute pancreatitis without necrosis or infection; N17.9 Acute kidney failure, unspecified; E87.3 Alkalosis; I31.39 Other pericardial effusion (noninflammatory); J90 Pleural effusion, not elsewhere classified; K70.0 Alcoholic fatty liver; D50.9 Iron deficiency anemia, unspecified; K65.2 Spontaneous bacterial peritonitis; R13.10 Dysphagia, unspecified; I82.621 Acute embolism and thrombosis of deep veins of right upper extremity; F17.210 Nicotine dependence, cigarettes, uncomplicated; R65.20 Severe sepsis without septic shock; L89.220 Pressure ulcer of left hip, unstageable; L89.210 Pressure ulcer of right hip, unstageable; F14.10 Cocaine abuse, uncomplicated; F10.10 Alcohol abuse, uncomplicated
CPT/HCPCS: 36415; 36430; 36516; 71045-TC-FY; 71275-TC; 74018-TC-FY; 74176-TC; 74178-TC; 74220-TC-FY; 76700-TC; 76705-TC; 76775-TC; 76856-TC; 76942-TC; 80048; 80053; 80076; 80307; 81003; 81025; 82042; 82103; 82105; 82150; 82308; 82390; 82436; 82465; 82525; 82570; 82728; 82747; 82784; 82787; 82803; 82945; 82962; 83010; 83036; 83516; 83540; 83550; 83605; 83615; 83690; 83735; 83880; 83930; 83935; 83986; 84100; 84133; 84155; 84156; 84157; 84165; 84300; 84443; 84460; 84466; 84478; 84479; 84484; 84540; 84703; 85014; 85025; 85027; 85610; 85730; 86038; 86140; 86160; 86301; 86334; 86644; 86695; 86696; 86803; 86850; 86900; 86901; 86922; 87040; 87045; 87046; 87070; 87075; 87077; 87086; 87102; 87116; 87205; 87206; 87210; 87389; 87497; 87522; 87529; 87637-QW; 88104; 88108; 88305-TC; 88312-TC; 88342-TC; 93005; 93010; 93306-TC; 93308; 93970-TC; 93971-TC; 97116-GP; 97161-GP; 99291; J0875; J1756; P9017; P9038; P9047; P9058; Q0162; Q9967

== ENCOUNTER 2025-07-18 15:42 | Inpatient (IN) | payer OTHER ==
[2025-07-18] MEDS ORDERED: ACETAMINOPHEN INJECTION 100 ML ONE (16:32)
[2025-07-18] MEDS: ACETAMINOPHEN 1000 MG/100 ML BAG IVPB ONE (17:05)
[2025-07-18 17:36] LABS: MCHC 27.7 g/dl (32.2-35.5); MEAN CELL VOLUME 81.1 fl (79.4-94.8); MEAN PLT VOLUME 9.1 fl (9.4-12.3); RDW 18.9 % (12.1-16.8)
[2025-07-18] MEDS ORDERED: VANCOMYCIN 1,000 MG in DEXTROSE 5%-WATER - 250 ML IVPB ONE (17:36)
[2025-07-18 17:42] LABS: INR 1.21 (0.83-1.09); PROTHROMBIN TIME (PATIENT) 13.3 SEC (9.7-13.0)
[2025-07-18 17:45] LABS: ACTIVATED PTT 37.7 SECONDS (25.2-36.5)
[2025-07-18 18:06] LABS: GLUCOSE,RANDOM 94.0 mg/dL (74-106)
[2025-07-18 18:07] LABS: TOT PROT 7.6 g/dl (6.4-8.2)
[2025-07-18 18:08] LABS: CO2 23.0 mmol/L (21-32)
[2025-07-18 18:09] LABS: ALK PHOS 156.0 U/L (40-150)
[2025-07-18 18:12] LABS: CREATININE 0.56 mg/dL (0.55-1.3); SGOT/AST 18.0 U/L (5-34); SGPT/ALT 7.0 U/L (0-55)
[2025-07-18 18:33] LABS: HIV INTERPRETATION NEGATIVE (NEGATIVE)
[2025-07-18] MEDS ORDERED: HYDROmorphone HCL CARPU-JECT 2 MG/1 ML DISP.SYRIN ONE (18:37)
[2025-07-18] MEDS ORDERED: VANCOMYCIN 1 GM PREMIX (F) 1 GM/200 ML BAG ONE ×2 (18:38→21:06)
[2025-07-18] MEDS ORDERED: PIPERACILLIN/TAZOB 3.375 GM 3.375 GM/50 ML BAG IVPB ONE (18:38)
[2025-07-18] MEDS ORDERED: KETOROLAC TROMETHAMINE 15 MG/ML VIAL ONE (18:38)
[2025-07-18] MEDS: SODIUM CHLORIDE 0.9% 500 ML INFUS.BAG IV ONE (18:50)
[2025-07-18] MEDS: PIPERACILLIN/TAZOB 3.375 GM 3.375 GM in DEXTROSE 5%-WATER - 50 ML IVPB ONE (19:12)
[2025-07-18] MEDS: KETOROLAC TROMETHAMINE 15 MG/ML VIAL IVPUSH ONE (19:13)
[2025-07-18 19:16] VITALS: RESP 18
[2025-07-18] MEDS: VANCOMYCIN 1 GM PREMIX (F) 1 GM/200 ML BAG IVPB ONE (21:11)
[2025-07-18 21:21] LABS: HCV DIAGNOSTIC IN-HOUSE W/RFLX REACTIVE (NONREACTIVE)
[2025-07-18] MEDS ORDERED: VANCOMYCIN 1,000 MG in DEXTROSE 5%-WATER - 250 ML IVPB SCH (21:30)
[2025-07-18] MEDS ORDERED: ONDANSETRON 4 MG/2 ML VIAL IVPUSH PRN (22:21)
[2025-07-18] MEDS: SODIUM CHLORIDE 1,000 ML IV SCH (23:00)
[2025-07-19 00:26] VITALS: BP 144/91; PULSE 70; TEMP 97.9; BMI 23.6
[2025-07-19] MEDS: AZTREONAM 2 GM in DEXTROSE 5%-WATER 100 ML IVPB SCH (01:16)
[2025-07-19] MEDS: KETOROLAC TROMETHAMINE 15 MG/ML VIAL IVPUSH PRN (01:56)
[2025-07-19] MEDS ORDERED: AZTREONAM 2 GM in DEXTROSE 5%-WATER 100 ML IVPB SCH ×2 (02:00→03:00)
[2025-07-19] MEDS: morphine CARPU-JECT 2 MG/1 ML DISP.SYRIN IM PRN (03:34)
[2025-07-19] MEDS ORDERED: VANCOMYCIN 1 GM PREMIX (F) 1 GM/200 ML BAG IVPB SCH (09:00)
[2025-07-19] MEDS ORDERED: ENOXAPARIN NA (PORCINE) 40 MG/0.4 ML DISP.SYRIN SQ SCH (10:00)
== END 2025-07-19 07:48 | disposition left against medical advice (07) | DRG 383 ==
LOC: JER 15:42 → JERBED 21:36 → J6S 22:28
PROVIDERS: ADMIT Hospitalist; ATTEND Internal Medicine
DX: L03.115 Cellulitis of right lower limb (principal); L97.919 Non-pressure chronic ulcer of unspecified part of right lower leg with unspecified severity; L97.929 Non-pressure chronic ulcer of unspecified part of left lower leg with unspecified severity; D64.9 Anemia, unspecified; F17.210 Nicotine dependence, cigarettes, uncomplicated; L03.116 Cellulitis of left lower limb
CPT/HCPCS: 36415; 71045-TC-FY; 71275-TC; 80053; 83735; 84484; 84703; 85027; 85610; 85730; 86803; 87040; 87389; 87522; 87637-QW; 93005; 93010; 93970-TC; 99285-25; Q9967